=== PATIENT | male | born 1965 ===

== ENCOUNTER → 2016-11-22 | Outpatient (REF) ==
--- NOTE | 2016-11-22 16:36 | REP ---
Cervical spine series: Three views. History: Degenerative disc disease. No comparison radiographs. Findings: The patient is edentulous. There is osteoarthritic facet hypertrophy in the mid cervical spine, most prominent on the left at C4-5. Degenerative disc narrowing is seen on lateral radiograph at C5-6 and C6-7 with anterior and posterior osteophyte formation most pronounced at C6-7. Cervical vertebral body heights are preserved. Alignment is normal. Impression: Degenerative spondylosis changes. Signed by Steve Donald MD 11/22/2016 05:37 P
== END | disposition home or self-care (01) ==
LOC: M SMT 13:22
PROVIDERS: ATTEND Internal Medicine
DX: Z02.71 Encounter for disability determination (principal)